=== PATIENT | female | born 1950 | race Caucasian/White ===

== ENCOUNTER 2017-12-23 13:29 | Emergency (ER) | payer OTHER, MEDICARE ==
[~2017-12-23] VITALS: Ht 167.6 cm; Wt 63.5 kg
[2017-12-23 14:04] VITALS: BP 135/71
--- NOTE | 2017-12-23 14:07 | RADIOLOGY REPORT ---
EXAMINATION: RIGHT ANKLE AND FOOT SERIES CLINICAL INFORMATION: Fracture COMPARISON: None TECHNIQUE: 3 views of the right ankle and 3 views of the right foot FINDINGS: There are a few small scattered round and/or oval calcification in the subcutaneous soft tissues in the lower leg likely reflective of chronic venous insufficiency. The bones joints and soft tissues are otherwise unremarkable IMPRESSION: No acute abnormality in the right foot and ankle
--- NOTE | 2017-12-23 14:50 | ED ANKLE/FOOT INJURY COMPLAINT ---
History of Present Illness General Chief Complaint: Foot or Ankle Injury Stated Complaint: MECHANICAL FALL X6 HOURS AGO R FOOT PAIN Source: patient Exam Limitations: no limitations Allergies Coded Allergies: MDX - Codeine (CODEINE) (Mild, RASH 12/23/17) MDX - Latex (LATEX) (Mild, RASH 12/23/17) Reconcile Medications Hydrocodone/Acetaminophen (Vicodin 5-300 MG Tablet) 5 MG-300 MG TABLET 0.5 TAB PO BID PRN PAIN Triage Note: PT TO ED FOR C/C OF PAIN AND SWELLING TO RIGHT FOOT WITH BRUISING. PT SLID DOWN APPROX 6 STEPS, NO HIT TO HEAD OR LOC. REPORTS PAIN WITH AMBULATION. Triage Nurses Notes Reviewed? yes Occurred: just prior to arrival Duration: day(s): (1), constant, continues in ED, getting worse Timing: single episode today Severity: moderate, severe Severity Numbers: 8 Pain/Injury Location: Right: Foot. Method of Injury: fall No Modifying Factors: none Modifying Factors: Worsens With: movement. HPI: 67-year-old female medical history of hypothyroidism presents for evaluation of her fall. Patient reports she was walking when she tripped causing her to roll her right foot. She reports pain over the dorsum of the right foot. It is worse with movement or weightbearing. There is no head strike or loss of consciousness. Patient is not taking blood thinners. She has not been able to walk since the accident. She has not taken any medicine for this. She usually is able to walk without a walker. (Arturo Hamilton) Vital Signs & Intake/Output Vital Signs & Intake/Output ED Intake and Output 12/24 0000 12/23 1200 Intake Total Output Total Balance Patient 140 lb Weight Weight Reported by Patient Measurement Method ([place] CORREA,Luis Sheridan) Past History Travel History Traveled to [place] past 21 day No Medical History Any Pertinent Medical History? 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 No (Arturo Hamilton) Review of Systems Review of Systems Constitutional: Reports: no symptoms. EENTM: Reports: no symptoms. Respiratory: Reports: no symptoms. Cardiovascular: Reports: no symptoms. GI: Reports: no symptoms. Genitourinary: Reports: no symptoms. Musculoskeletal: Reports: see HPI, muscle pain, muscle stiffness. Skin: Reports: no symptoms. Neurological/Psychological: Reports: no symptoms. Hematologic/Endocrine: Reports: no symptoms. Immunologic/Allergic: Reports: no symptoms. All Other Systems: Reviewed and Negative (Arturo Hamilton) Physical Exam Physical Exam General Appearance: well developed/nourished, no apparent distress, alert, awake Head: atraumatic, normal appearance Eyes: Bilateral: normal appearance, PERRL, EOMI. Ears, Nose, Throat: hearing grossly normal Neck: normal inspection, supple, full range of motion, no midline tenderness Cardiovascular/Respiratory: no respiratory distress Back: normal inspection, normal range of motion, no vertebral tenderness Leg/Knee/Thigh Left: normal range of motion, normal inspection Leg/Knee/Thigh Right: normal range of motion, normal inspection Ankle Left: normal inspection, normal range of motion Ankle Right: normal inspection, normal range of motion Foot Left: normal inspection, normal range of motion Foot Right: soft tissue tenderness, swelling, THERE IS TENDERNESS TO PLAPTION AND SOFT TISSUE SWELLING OVER THE DORSUM OF THE RT FOOT. NO GROSS DEFORMITY. ROM OF THE FOOT IS REDUCED DUE TO PAIN. N/V SUPPLY INTACT Neuro/Vascular: normal motor function, normal sensation Tendon: normal tendon function Psychiatric: awake, alert, oriented x 3 Skin: intact, normal color, warm/dry (Arturo Hamilton) Progress Differential Diagnosis: fracture, dislocation, sprain, contusion, compartmental syndrome Diagnostic Imaging: Viewed by Me: Radiology Read. Discussed w/RAD: Radiology Read. Radiology Impression: PATIENT: RAE URENA PRESENT AGE: 67 PATIENT ACCOUNT NO: [id number] : 49 LOCATION: [facility] ORDERING PHYSICIAN: Arturo PEÑA SERVICE DATE: 12/23/173322 EXAM TYPE: RAD - XRY-ANKLE 3 OR MORE VIEWS R; XRY-FOOT COMPLETE, R EXAMINATION: RIGHT ANKLE AND FOOT SERIES CLINICAL INFORMATION: Fracture COMPARISON: None TECHNIQUE: 3 views of the right ankle and 3 views of the right foot FINDINGS: There are a few small scattered round and/or oval calcification in the subcutaneous soft tissues in the lower leg likely reflective of chronic venous insufficiency. 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 < Electronically signed in Other Vendor System> SIGNED BY: Quan Hunt MD 12/23/17 9580 (Arturo Hamilton) Plan of Care: Orders Procedure Date/time Status Durable Medical Equipment 12/23 3580 Active Patient is here for evaluation of right foot pain after a fall. There is not appear to be any signs of other trauma. On exam she has pain and swelling of the dorsum of the right foot. X-rays the foot and ankle are negative for fracture. Patient was medicated with Motrin. Patient lives at home and in law suite. She was given a walker and was able to ambulate with this. Advised to follow-up with podiatry as soon as possible. Continue Tylenol ibuprofen for pain. [place] for severe pain. Discussed return precautions Case discussed Dr. Patel he agrees. (Arturo Hamilton) ([place] CORREA,Luis Sheridan) Departure Departure Disposition: HOME OR SELF CARE Condition: Stable Clinical Impression Primary Impression: Foot sprain Qualifiers: Encounter type: initial encounter Laterality: right Qualified Code: S93.601A - Unspecified sprain of right foot, initial encounter Referrals: Óscar CORREA,Jose Cage (PCP/Family) Des Almonte DPM Additional Instructions: Rest, keep her foot elevated. Apply ice 15-20 minutes every few hours. Tylenol ibuprofen for pain. Vicodin for severe pain only. Make a follow-up with Dr. Almonte sports doctor as soon as possible. Monitor your symptoms return with any concerns. If you ARE having difficulty WALKING at home return to the emergency department. Departure Forms: Customer Survey General Discharge Information Prescriptions: Current Visit Scripts Hydrocodone/Acetaminophen (Vicodin 5-300 MG Tablet) 0.5 TAB PO BID PRN PAIN #10 TAB (Arturo Hamilton) PA/METALLIC YARN SLITTING MACHINE OPERATOR Co-Sign Statement Statement: ED Attending supervision documentation- [x] I saw and evaluated the patient. I have also reviewed all the pertinent lab results and diagnostic results. I agree with the findings and the plan of care as documented in the PA's/METALLIC YARN SLITTING MACHINE OPERATOR's documentation. [] I have reviewed the ED Record and agree with the PA's/METALLIC YARN SLITTING MACHINE OPERATOR's documentation. [] Additions or exceptions (if any) to the PAs/METALLIC YARN SLITTING MACHINE OPERATOR's note and plan are summarized below: [] ([place] CORREA,Luis Sheirdan)
[2017-12-23] MEDS ORDERED: VICODIN 5-3001 EACH PO (15:38)
== END 2017-12-23 16:44 ==
LOC: ERH 13:29
DX: S93.601A Unspecified sprain of right foot, initial encounter (principal); E03.9 Hypothyroidism, unspecified; F17.210 Nicotine dependence, cigarettes, uncomplicated; W10.9XXA Fall (on) (from) unspecified stairs and steps, initial encounter
CPT/HCPCS: 73610-RT; 73630-RT